=== PATIENT | male | born 1950 | race Caucasian/White ===

== ENCOUNTER → 2016-11-14 | Outpatient (CLI) | payer OTHER ==
[~2016-11-14] MED LIST: FLOMAX PO; HUMIRA20 MG/0.4 SQ; LUNESTA; PERCOCET 7.5-31 EACH PO; ZOLOFT
== END ==
LOC: HYPER 07:08
DX: L97.511 Non-pressure chronic ulcer of other part of right foot limited to breakdown of skin (principal); G90.09 Other idiopathic peripheral autonomic neuropathy; B35.3 Tinea pedis; L60.1 Onycholysis; Z85.46 Personal history of malignant neoplasm of prostate; F17.210 Nicotine dependence, cigarettes, uncomplicated; Z72.89 Other problems related to lifestyle

== ENCOUNTER 2017-08-11 13:28 | Emergency (ER) | payer OTHER ==
[2017-08-11 13:29] VITALS: BP 136/96
[2017-08-11] MEDS ORDERED: ERYTHROMYCIN E3.5 G3 OPHTHALMIC (14:33)
== END 2017-08-11 15:14 | disposition home or self-care (01) ==
LOC: ER 13:28
DX: H57.8 Other specified disorders of eye and adnexa (principal); Z85.46 Personal history of malignant neoplasm of prostate; Z90.49 Acquired absence of other specified parts of digestive tract

== ENCOUNTER 2018-03-03 12:21 | Inpatient (IN) | payer OTHER ==
[~2018-03-03] VITALS: Ht 182.8 cm; Wt 81.6 kg
[~2018-03-03 12:21] MED LIST changes: +ERYTHROMYCIN E3.5 G3 OPHTHALMIC
[2018-03-03 12:24] VITALS: BP 165/103
[2018-03-03 13:14] LABS: HEMATOCRIT 37.4 % (42.0-52.0); HEMOGLOBIN 12.7 gm/dL (14.0-18.0); MCH 34.2 pg (26.0-34.0); MCHC 34.1 g/dL (28.0-37.0); MCV 100.5 fL (80.0-100.0); PLATELET COUNT 192 thou/uL (150-400); RBC 3.72 mil/uL (4.50-6.00); RDW 14.8 % (10.5-14.5); WBC 27.8 thou/uL (4.0-11.0)
[2018-03-03 13:19] LABS: CALCIUM 8.5 mg/dL (8.5-10.1); CREATININE 1.2 mg/dL (0.7-1.3); POTASSIUM 3.6 mmol/L (3.5-5.1)
[2018-03-03 13:24] LABS: ALBUMIN 3.4 g/dL (3.4-5.0)
[2018-03-03 13:55] LABS: ABSOLUTE NEUTROPHILS 22.8 thou/uL (1.4-8.2); PLATELET ESTIMATE NORMAL
[2018-03-03 16:24] LABS: MAGNESIUM 1.3 mg/dL (1.8-2.4); PHOSPHORUS 3.7 mg/dL (2.5-4.9)
[2018-03-03 17:37] VITALS: BP 144/86
[2018-03-03 19:47] VITALS: BP 143/76
[2018-03-03 23:44] VITALS: BP 157/89
[2018-03-04 03:23] VITALS: BP 152/95
[2018-03-04 07:37] VITALS: BP 147/89
[2018-03-04 11:29] VITALS: BP 147/89
[2018-03-04 11:48] LABS: HEMATOCRIT 37.8 % (42.0-52.0); MCH 34.7 pg (26.0-34.0); MCHC 34.4 g/dL (28.0-37.0); MCV 100.9 fL (80.0-100.0); RBC 3.75 mil/uL (4.50-6.00); RDW 15.6 % (10.5-14.5); WBC 15.9 thou/uL (4.0-11.0)
[2018-03-04 15:57] VITALS: BP 136/88
[2018-03-04 18:52] LABS: URINE BILIRUBIN NEGATIVE (Negative); URINE BLOOD NEGATIVE (Negative); URINE CLARITY CLEAR; URINE COLOR YELLOW; URINE GLUCOSE-RANDOM* 2+ (Negative); URINE KETONES TRACE (Negative); URINE LEUKOCYTES NEGATIVE (Negative); URINE NITRITE NEGATIVE (Negative); URINE PROTEIN (DIPSTICK) TRACE (Negative); URINE SPECIFIC GRAVITY 1.015 (1.005-1.035); URINE UROBILINOGEN 0.2 E.U./dl (0.2-1.0)
[2018-03-04 19:01] LABS: AMP/METHAMP Negative (Negative); BARBITURATES Negative (Negative); BENZODIAZEPINES POSITIVE (Negative); COCAINE Negative (Negative); METHADONE Negative (Negative); OPIATES Negative (Negative); PCP Negative (Negative)
[2018-03-04 20:49] VITALS: BP 150/75
[2018-03-04 21:00] VITALS: BP 147/92
[2018-03-05 04:00] VITALS: BP 157/96
[2018-03-05 06:35] LABS: CALCIUM 8.9 mg/dL (8.5-10.1); CREATININE 1.1 mg/dL (0.7-1.3); MAGNESIUM 1.7 mg/dL (1.8-2.4); PHOSPHORUS 2.7 mg/dL (2.5-4.9); POTASSIUM 3.7 mmol/L (3.5-5.1)
[2018-03-05 08:00] VITALS: BP 160/91
[2018-03-05 16:00] VITALS: BP 180/114
[2018-03-05 18:09] VITALS: BP 163/104
[2018-03-05 19:43] VITALS: BP 164/98
[2018-03-05 19:47] VITALS: BP 155/105
[2018-03-06 03:56] VITALS: BP 169/101
[2018-03-06 05:40] LABS: ALBUMIN 2.9 g/dL (3.4-5.0); CALCIUM 8.8 mg/dL (8.5-10.1); POTASSIUM 3.2 mmol/L (3.5-5.1); TOTAL BILIRUBIN 0.4 mg/dL (<0.1-1.0); TOTAL PROTEIN 7.1 g/dL (6.4-8.2)
[2018-03-06 05:51] LABS: HEMATOCRIT 36.7 % (42.0-52.0); HEMOGLOBIN 12.6 gm/dL (14.0-18.0); MCH 34.6 pg (26.0-34.0); MCHC 34.4 g/dL (28.0-37.0); MCV 100.7 fL (80.0-100.0); RBC 3.64 mil/uL (4.50-6.00); RDW 15.6 % (10.5-14.5); WBC 14.8 thou/uL (4.0-11.0)
[2018-03-06 08:00] VITALS: BP 174/105
[2018-03-06 10:00] VITALS: BP 174/105
[2018-03-06 16:00] VITALS: BP 164/110
[2018-03-06 19:37] VITALS: BP 154/93
[2018-03-07 05:16] VITALS: BP 150/09
[2018-03-07 08:26] VITALS: BP 158/102
[2018-03-07] MEDS ORDERED: LISINOPRIL20 MG PO (08:56)
[2018-03-07] MEDS ORDERED: VANCOMYCIN HCL10 GM PO (08:56)
[2018-03-07 10:23] VITALS: BP 158/102
== END 2018-03-07 11:55 | disposition home or self-care (01) | DRG 872 ==
LOC: ER 12:21 → EROBS 15:21 → 4W 15:21 → ENTRNSPT 03-07 10:44 → EDTRNSPTSTS 03-07 10:46 → 4W 03-07 11:55
PROVIDERS: Emergency Medicine; Hospitalist; Nurse Practitioner
DX: A41.9 Sepsis, unspecified organism (principal); K63.2 Fistula of intestine; A04.72 Enterocolitis due to Clostridium difficile, not specified as recurrent; K76.0 Fatty (change of) liver, not elsewhere classified; F10.10 Alcohol abuse, uncomplicated; F17.210 Nicotine dependence, cigarettes, uncomplicated; Z85.46 Personal history of malignant neoplasm of prostate; Z89.411 Acquired absence of right great toe; Z90.81 Acquired absence of spleen; Z90.49 Acquired absence of other specified parts of digestive tract; Z79.899 Other long term (current) drug therapy; Z83.79 Family history of other diseases of the digestive system
CPT/HCPCS: 10045